=== PATIENT | female | born 1990 | race Caucasian/White ===

== ENCOUNTER 2017-12-04 00:49 | Emergency (ER) | payer OTHER ==
--- NOTE | 2017-12-04 01:01 | ED Physician Documentation ---
PD HPI URI - Stated complaint Stated Complaint: THROAT,EAR PX - Chief complaint Chief Complaint: Heent - History obtained from History obtained from: Patient - History of Present Illness Timing - onset: How many days ago (few) Timing duration: Days Timing details: Gradual onset, Still present Associated symptoms: Fever, Chills, Sore throat, Swollen nodes. No: Nasal congestion, Dry cough Contributing factors: Sick contact (with strep throat). No: Travel, COPD / asthma Review of Systems Constitutional: reports: Fever, Chills, Myalgias Nose: denies: Rhinorrhea / runny nose, Congestion Throat: reports: Sore throat Respiratory: denies: Cough GI: denies: Nausea, Vomiting, Diarrhea PD PAST MEDICAL HISTORY - Past Medical History Past Medical History: Yes HEENT: None - Past Surgical History Past Surgical History: Yes HEENT: Myringotomy (tubes), Tonsil/Adenoidectomy - Present Medications Home Medications: Ambulatory Orders Medication Instructions Recorded Confirmed Amoxicillin 500 mg PO TID #20 capsule 12/04/17 Vitamin [Trinatal Rx 1] 1 tab PO DAILY 12/04/17 12/04/17 predniSONE [Deltasone] 20 mg PO DAILY 5 Days #5 tablet 12/04/17 - Allergies Allergies/Adverse Reactions: Allergies Allergy/AdvReac Type Severity Reaction Status Date / Time acetaminophen [From Vicodin] AdvReac Emesis Verified 12/04/17 01:00 hydrocodone [From Vicodin] AdvReac Emesis Verified 12/04/17 01:00 - Social History Does the pt smoke?: No Smoking Status: Never smoker Does the pt drink ETOH?: Yes Does the pt have substance abuse?: No - Immunizations Immunizations are current?: Yes - POLST Patient has POLST: No PD ED PE NORMAL - Vitals Vital signs reviewed: Yes - General General: Alert and oriented X 3, No acute distress, Well developed/nourished - HEENT HEENT: Ears normal. No: Pharynx benign (red and swollen tonsils with exudates. ) - Neck Neck: Supple, no meningeal sign, Other (anterior adenopathy both sides; not posterior. ) - Cardiac Cardiac: RRR, No murmur - Respiratory Respiratory: Clear bilaterally - Derm Derm: Normal color, Warm and dry, No rash Results - Vitals Vitals: Oxygen O2 Source Room air - Labs Labs: Laboratory Tests 12/04/17 01:04 Group A Strep Rapid POSITIVE H PD MEDICAL DECISION MAKING - ED course Complexity details: reviewed results, considered differential, d/w patient Departure - Departure Disposition: 01 Home, Self Care Clinical Impression: Pharyngitis, streptococcal, acute Condition: Stable Record reviewed to determine appropriate education?: Yes Instructions: ED Strep Pharyngitis Conf Prescriptions: Amoxicillin 500 mg PO TID #20 capsule predniSONE [Deltasone] 20 mg PO DAILY 5 Days #5 tablet Comments: Drink lots of fluids. Tylenol or ibuprofen if needed for fevers and pains. Amoxicillin 3 times daily for a week. You can use prednisone steroid anti- inflammatory to decrease symptoms as well daily for the next several days. Off work for a day while on the antibiotics initially. Return to work as able based on comfort after the first day. Discharge Date/Time: 12/04/17 02:04
[2017-12-04] MEDS ORDERED: predniSONE 20 MG TABLET PO STA (01:45)
[2017-12-04] MEDS ORDERED: ACETAMINOPHEN 325 MG TABLET PO STA (01:45)
[2017-12-04] MEDS ORDERED: AMOXICILLIN 250 MG CAPSULE PO STA (01:45)
[2017-12-04 02:04] VITALS: BP 122/67
== END 2017-12-04 02:04 | disposition home or self-care (01) ==
LOC: ED 00:49
DX: J02.0 Streptococcal pharyngitis (principal)
CPT/HCPCS: 87430; 99283; A9270; J7512

== ENCOUNTER 2024-07-12 13:23 | Outpatient (CLI) | payer OTHER ==
[2024-07-12 18:03] LABS: BASOPHILS % (AUTO) 0.5 %; EOSINOPHILS # (AUTO) 0.2 10^3/uL (0.0-0.7); EOSINOPHILS % (AUTO) 2.3 %; HCT - HEMATOCRIT 40.3 % (37.0-47.0); HGB - HEMOGLOBIN 13.1 g/dL (12.0-16.0); LYMPHOCYTES # (AUTO) 1.7 10^3/uL (1.5-3.5); LYMPHOCYTES % (AUTO) 25.4 %; MEAN CORPUSCULAR HGB CONC 32.5 g/dL (32.0-36.0); MEAN CORPUSCULAR VOLUME 89.2 fL (81.0-99.0); MEAN PLATELET VOLUME 10.4 fL (7.9-10.8); MONOCYTES # (AUTO) 0.4 10^3/uL (0.0-1.0); MONOCYTES % (AUTO) 5.4 %; NEUTROPHILS # (AUTO) 4.3 10^3/uL (1.5-6.6); NEUTROPHILS % (AUTO) 66.2 %; PLT - PLATELET COUNT 280 10^3/uL (130-450); RED BLOOD COUNT 4.52 10^6/uL (4.20-5.40); RED CELL DISTRIBUTION WIDTH 12.2 % (12.0-15.0); WHITE BLOOD COUNT 6.5 x10^3/uL (4.8-10.8)
[2024-07-12 18:31] LABS: THYROID STIMULATING HORMONE 2.52 uIU/mL (0.34-5.60)
[2024-07-12 18:36] LABS: PROLACTIN 13.01 ng/mL
[2024-07-14 08:10] LABS: PROGESTERONE 0.5 ng/mL (.)
== END 2024-07-12 13:24 | disposition home or self-care (01) ==
LOC: LAB.N 13:23
PROVIDERS: ATTEND Obstetrics & Gynecology
DX: R53.83 Other fatigue (principal)
CPT/HCPCS: 36415; 82670; 84144; 84146; 84443; 85025